=== PATIENT | female | born 1945 | race African-American/Black ===

== ENCOUNTER → 2017-08-10 | Outpatient (CLI) | payer MEDICARE, OTHER ==
[~2017-08-10] MED LIST: AMLO10TA2 PO; ANAS1 PO; CATA0.2D TD; CLON0.1D T-DERMAL; COZA100T PO; DALB1SOL IV; DIFL100T PO; FERR1TAB16 PO; LEVO.125 PO; LISI-363 PO; LOVA1TAB47 PO; METO1TAB42 PO; METO50CR OR; NITR.4 SL; OMEP20CA5 PO; OMEP20TA93 PO; OXYC1CAP PO; RENATAB6 PO; SIMV20TA PO; ZOFR4TAB3 SL
[2017-08-10 13:39] LABS: HEMATOCRIT 36.2 % (35.0-46.0); HEMOGLOBIN 11.9 GM/DL (11.6-15.3); MEAN CELL VOLUME 97.9 FL (80.0-100.0); MEAN CORPUSCULAR HEMOGLOBIN 32.3 PG (27.0-34.0); MEAN CORPUSCULAR HGB CONC 32.9 % (32.0-36.0); MEAN PLATELET VOLUME 7.6 FL (7.0-11.0); PLATELET COUNT 221 TH/MM3 (150-450); RED CELL DISTRIBUTION WIDTH 15.2 % (11.6-17.2); WHITE BLOOD COUNT 7.6 TH/MM3 (4.0-11.0)
[2017-08-10 13:47] LABS: INTERNATIONAL NORMALIZED RATIO 1.1 RATIO; PROTHROMBIN TIME - PATIENT 10.7 SEC (9.8-11.6)
[2017-08-10 14:10] LABS: CALCIUM 7.8 MG/DL (8.5-10.1)
[2017-08-10 14:21] LABS: CREATININE 10.15 MG/DL (0.50-1.00)
--- NOTE | 2017-08-11 23:13 | EKG ---
Date Performed: 08/10/2017 Time Performed: 12:37:40 PTAGE: 72 years EKG: Sinus rhythm WITH MARKED SINUS ARRHYTHMIA BORDERLINE ECG NO PREVIOUS TRACING DOCTOR: Mehnaz Manzano Interpretating Date/Time 08/11/2017 23:12:21
== END ==
LOC: CPRE 11:58
PROVIDERS: ATTEND Surgery
DX: Z01.812 Encounter for preprocedural laboratory examination (principal); Z01.818 Encounter for other preprocedural examination; N18.6 End stage renal disease; I77.0 Arteriovenous fistula, acquired; R94.31 Abnormal electrocardiogram [ECG] [EKG]; Z99.2 Dependence on renal dialysis
CPT/HCPCS: 36415; 80048; 85027; 85610; 86850; 86900; 86901; 93005

== ENCOUNTER 2017-08-12 11:36 | Observation (INO) | payer MEDICARE, OTHER ==
[~2017-08-12] VITALS: Ht 170.2 cm; Wt 97.5 kg
[~2017-08-12 11:36] MED LIST changes: -ANAS1 PO; -CATA0.2D TD; -COZA100T PO; -LISI-363 PO; -LOVA1TAB47 PO; -METO50CR OR; -NITR.4 SL; -OMEP20CA5 PO; -OXYC1CAP PO; -ZOFR4TAB3 SL
[2017-08-12] MEDS ORDERED: LIDOCAINE HCL 1% PF 5 ML SYRINGE OTHER ONE (12:00)
[2017-08-12] MEDS ORDERED: DEXAMETHASONE SOD PHOS 4 MG/ML VIAL IV ONE (12:00)
[2017-08-12] MEDS ORDERED: SUCCINYLCHOLINE CHLORIDE 100 MG/5 ML SYRINGE IV PUSH ONE (12:00)
[2017-08-12] MEDS ORDERED: STERILE WATER FOR INJECTION 20 ML VIAL IV ONE (12:00)
[2017-08-12] MEDS ORDERED: PROPOFOL 200 MG/20 ML AMP IV ONE (12:00)
[2017-08-12] MEDS ORDERED: ONDANSETRON HCL 4 MG/2 ML VIAL IV ONE (12:00)
[2017-08-12] MEDS ORDERED: LABETALOL HCL 100 MG/20 ML VIAL IV ONE (12:00)
[2017-08-12] MEDS ORDERED: SODIUM CHLOR 0.9% 250 ML INJ 250 ML IV ONE (12:00)
[2017-08-12] MEDS ORDERED: LACTATED RINGER'S 1000 ML IV PRN (12:30)
[2017-08-12] MEDS ORDERED: CHLORHEXIDINE GLUCONATE 2 % 1 PACK (2 CLOTHS) TOPICAL PRN (12:30)
[2017-08-12] MEDS ORDERED: METOPROLOL TARTRATE 25 MG TAB PO PRN (12:30)
[2017-08-12] MEDS ORDERED: SODIUM CHLORID 0.9% 500 ML IV PRN (12:30)
[2017-08-12] MEDS ORDERED: POVIDONE IODINE 5% (ANTISEPSIS KIT) 4 APPLICATIONS EACH NARE PRN (12:30)
--- NOTE | 2017-08-12 14:28 | PD.VS.PN ---
Pre-operative Note Pre-operative diagnosis: 1. R UE thrombosed access 2. ESRD need for HD access Planned procedure: 1. Excision of R forearm access 2. R UE access creation Interval History: Pt has been feeling well except for pain in the right arm. Ready for surgery. Labs: Hct 36 K ok Blood: T&S Imaging: duplex reviewed Orders: NPO Vanc 1g IV OCTOR Post-operative destination: PACU Operative site marked: Yes Consent: Informed consent has been obtained from Kiara Solitario. I have explained the procedure in detail and discussed the risks, benefits, and potential complications. All questions have been answered. Patient contact information: James [phone] Jace Taylor MD Aug 12, 2017 14:28
[2017-08-12] MEDS ORDERED: VANCOMYCIN HCL 1000 MG VIAL ONE (14:54)
[2017-08-12] MEDS ORDERED: HEPARIN SODIUM - IV 10,000 UNITS/10 ML VIAL ONE (14:54)
[2017-08-12] MEDS ORDERED: HEPARIN-NS/PF INJ 500 ML ONE (14:54)
[2017-08-12] MEDS ORDERED: THROMBIN (TOPICAL) 20,000 UNIT SPRAY KIT ONE (14:54)
[2017-08-12] MEDS ORDERED: PROTAMINE SULFATE 50 MG/5 ML VIAL ONE (14:54)
[2017-08-12] MEDS ORDERED: BUPIVACAINE HCL PF 0.5% 30 ML VIAL ONE (14:54)
--- NOTE | 2017-08-12 16:54 | HHI.PR ---
cc: Jace Taylor MD Immediate Post Op Note Procedure Date: Aug 12, 2017 Pre Op Diagnosis: Thrombosed R UE AVF, ESRD need for HD access Post Op Diagnosis: Thrombosed R UE AVF, ESRD need for HD access Surgeon: Jace Taylor Cold Press Operator(s): Rizwan Marley Procedure: 1. R UE Access excision 2. R UE brachiobasilic AVF creation (1st stage) Findings: thrombosed aneurysms in forearm and antecubitum good thrill after AVF Complications: none Estimated blood loss: 150mL Anesthesia: General Drains: None Fluids: 400mL IVF Patient to: PACU Patient Condition: Good Implant/Devices: SEE IMPLANT LOG (if applicable) Date/Time of Procedure: SEE SURGICAL CARE RECORD Jace Taylor MD Aug 12, 2017 16:53
[2017-08-12] MEDS ORDERED: LACTULOSE SYRUP 20 GM/30 ML CUP PO PRN (17:00)
[2017-08-12] MEDS ORDERED: [UNRECOGNIZED DRUG - OTHER] IV SCH (17:00)
[2017-08-12] MEDS ORDERED: BISACODYL 10 MG SUPP RECTAL PRN (17:00)
[2017-08-12] MEDS ORDERED: SENNOSIDES 8.6 MG TAB PO PRN (17:00)
[2017-08-12] MEDS ORDERED: FERRIC CITRATE PO SCH (17:00)
[2017-08-12] MEDS ORDERED: *morphine SULFATE 8 MG/ML PERIprocedure ONLY ONE ×2 (17:19→19:35)
[2017-08-12] MEDS ORDERED: DO NOT ADM ANY ANTICOAGULANT DRUGS PRN (17:30)
[2017-08-12] MEDS ORDERED: REMOVE OLD PATCH T-DERMAL SCH (18:00)
[2017-08-12] MEDS ORDERED: cloNIDine HCL 0.1 MG/24 HR PATCH T-DERMAL SCH (18:00)
[2017-08-12 20:00] VITALS: BP 123/58; PULSE 74; RESP 20; TEMP 97.5; O2SAT 99
[2017-08-12 20:22] VITALS: O2SAT 99
[2017-08-12 21:00] VITALS: PULSE 74
[2017-08-12] MEDS ORDERED: METOPROLOL SUCCINATE 25 MG EXTENDED RELEASE TAB PO SCH (21:00)
[2017-08-12] MEDS ORDERED: PRAVASTATIN SOD 40 MG TAB PO SCH (21:00)
[2017-08-12] MEDS: DOCUSATE SODIUM 50 MG/SENNA 8.6 MG TAB PO SCH (21:12)
[2017-08-12] MEDS: FAMOTIDINE 20 MG TAB PO SCH (21:16)
[2017-08-12 22:00] VITALS: PULSE 76
[2017-08-12 23:00] VITALS: PULSE 74
[2017-08-13] VITALS (15 sets, daily range): BP systolic 114–118; BP diastolic 59–62; PULSE 56–77; RESP 18–19; TEMP 98.2–98.7; O2SAT 97
[2017-08-13] MEDS: HYDROmorphone HCL 2 MG TAB PO PRN ×2 (03:15→09:29)
[2017-08-13 04:42] LABS: HEMATOCRIT 31.4 % (35.0-46.0); HEMOGLOBIN 10.3 GM/DL (11.6-15.3); MEAN CELL VOLUME 97.9 FL (80.0-100.0); MEAN CORPUSCULAR HGB CONC 32.7 % (32.0-36.0); MEAN PLATELET VOLUME 7.7 FL (7.0-11.0); PLATELET COUNT 229 TH/MM3 (150-450); RED BLOOD COUNT 3.21 MIL/MM3 (4.00-5.30); WHITE BLOOD COUNT 8.5 TH/MM3 (4.0-11.0)
[2017-08-13 05:11] LABS: BICARBONATE 27.7 MEQ/L (21.0-32.0); CALCIUM 7.8 MG/DL (8.5-10.1)
[2017-08-13 05:20] LABS: CREATININE 10.5 MG/DL (0.50-1.00)
[2017-08-13] MEDS ORDERED: LEVOTHYROXINE SODIUM 125 MCG TAB PO SCH (06:00)
[2017-08-13] MEDS: FAMOTIDINE 20 MG TAB PO SCH (08:52)
[2017-08-13] MEDS: DOCUSATE SODIUM 50 MG/SENNA 8.6 MG TAB PO SCH (08:52)
[2017-08-13] MEDS ORDERED: VITAMIN B CMPLX/VITC/FOLIC AC CAP PO SCH (09:00)
[2017-08-13] MEDS ORDERED: PANTOPRAZOLE SOD 20 MG DELAYED RELEASE TAB PO SCH (09:00)
[2017-08-13] MEDS ORDERED: ASPIRIN 81 MG CHEW TAB PO SCH (09:00)
[2017-08-13] MEDS ORDERED: ZOFR4TAB3 SL (09:02)
[2017-08-13] MEDS ORDERED: OXYC1CAP PO (09:03)
[2017-08-13] MEDS ORDERED: ONDANSETRON HCL 4 MG/2 ML VIAL IV PUSH PRN (09:15)
[2017-08-13] MEDS ORDERED: FERRIC CITRATE (AURYXIA) 210MG TABLET PO SCH (09:30)
--- NOTE | 2017-08-13 09:31 | PD.VS.PN ---
Subjective POD #: 1 Procedure(s): R UE Access excision R UE brachiobasilic AVF creation (1st stage) Subjective/Hospital Course 72/F S/P R UE Access excision/R UE brachiobasilic AVF creation (1st stage) Pt doing well this am Pt c/o Nausea this am w/o vomiting Pain controlled Pt w/o hand pain this am Pt c/o hand discomfort last night (incisional pain) UE warm w/ motor intact Objective Vitals/I&O Date Time Temp Pulse Resp B/P (MAP) Pulse Ox O2 Delivery O2 Flow Rate FiO2 08/13/17 06:00 74 08/13/17 05:00 74 08/13/17 04:13 75 08/13/17 03:30 98.2 70 19 118/62 (80) 97 08/13/17 03:00 71 08/13/17 02:06 74 08/13/17 01:00 72 08/13/17 00:28 74 08/13/17 00:00 98.7 71 18 114/59 (77) 97 08/12/17 23:00 74 08/12/17 22:00 76 08/12/17 21:00 74 08/12/17 21:00 74 08/12/17 20:22 99 Nasal Cannula 2.00 08/12/17 20:00 97.5 74 20 123/58 (79) 99 08/12/17 20:00 74 08/12/17 19:30 75 12 120/67 (84) 99 Nasal Cannula 2 08/12/17 19:00 97.4 77 15 113/86 (95) 94 Nasal Cannula 2 08/12/17 18:30 68 14 128/60 (82) 100 Nasal Cannula 2 08/12/17 18:00 64 12 122/65 (84) 100 Nasal Cannula 2 08/12/17 17:45 65 13 125/60 (81) 100 Nasal Cannula 2 08/12/17 17:30 65 13 128/61 (83) 100 Nasal Cannula 2 08/12/17 17:15 68 13 127/61 (83) 100 Nasal Cannula 2 08/12/17 16:59 97.8 67 23 128/67 (87) 100 Nasal Cannula 2 08/12/17 12:50 97.9 55 18 133/77 (95) 98 08/13/17 08/13/17 08/13/17 07:00 15:00 23:00 Intake Total 240 ml Output Total 200 ml Balance 40 ml Exam: GENERAL: A&OX3,NAD, GCS 15 SKIN: UE Warm and dry w/ motor intact R UE incision intact w/o R/D/S + thrill near AVF Laboratory Laboratory Tests Test 08/13/17 04:15 White Blood Count 8.5 Red Blood Count 3.21 Hemoglobin 10.3 Hematocrit 31.4 Mean Corpuscular Volume 97.9 Mean Corpuscular Hemoglobin 32.0 Mean Corpuscular Hemoglobin Concent 32.7 Red Cell Distribution Width 15.0 Platelet Count 229 Mean Platelet Volume 7.7 Blood Urea Nitrogen 35 Creatinine 10.50 Random Glucose 124 Calcium Level 7.8 Sodium Level 140 Potassium Level 5.3 Chloride Level 101 Carbon Dioxide Level 27.7 Anion Gap 11 Estimat Glomerular Filtration Rate 4 25-Hydroxy Vitamin D Total 7.2 Parathyroid Hormone (Intact) 501.8 Assessment and Plan Assessment: (1) AVF (arteriovenous fistula) (2) ESRD (end stage renal disease) on dialysis Plan 72/F s/p R UE AVF excision/ R UE AVF creation (first stage) Pt doing well Pain controlled Pt c/o nausea UE warm w/ motor intact + thrill Near AVF Plan Antiemetic ordered PRN for nausea Discussed and reviewed AVF first stage/Excision post operative care and management w/ pt Pt clear for D/c post HD today Arranged out pt f/u Annalee Arredondo NP [id number] Annalee Arredondo [facility] Aug 13, 2017 09:31
--- NOTE | 2017-08-13 09:47 | PD.VS.DC ---
Discharge Summary Admission Date: Aug 12, 2017 at 17:06 Discharge Date: Aug 13, 2017 Admission Diagnosis: (1) AVF (arteriovenous fistula) (2) ESRD (end stage renal disease) on dialysis Discharge Diagnosis: (1) AVF (arteriovenous fistula) ICD Codes: I77.0 - Arteriovenous fistula, acquired (2) ESRD (end stage renal disease) on dialysis ICD Codes: N18.6 - End stage renal disease; Z99.2 - Dependence on renal dialysis Brief History from admission 72/F w/ a PMH R UE thrombosed access and ESRD need for HD access Procedure(s): R UE Access excision R UE brachiobasilic AVF creation (1st stage) Significant Findings GENERAL: A&OX3,NAD, GCS 15 SKIN: UE Warm and dry w/ motor intact R UE incision intact w/o R/D/S + thrill near AVF Laboratory Tests Test 08/13/17 04:15 Red Blood Count 3.21 MIL/MM3 (4.00-5.30) Hemoglobin 10.3 GM/DL (11.6-15.3) Hematocrit 31.4 % (35.0-46.0) Blood Urea Nitrogen 35 MG/DL (7-18) Creatinine 10.50 MG/DL (0.50-1.00) Random Glucose 124 MG/DL (74-106) Calcium Level 7.8 MG/DL (8.5-10.1) Potassium Level 5.3 MEQ/L (3.5-5.1) Estimat Glomerular Filtration Rate 4 ML/MIN (>89) 25-Hydroxy Vitamin D Total 7.2 ng/ML (30-100) Parathyroid Hormone (Intact) 501.8 PG/ML (12.4-76.8) Hospital Course: 72/F w/ a PMH R UE thrombosed access and ESRD need for HD access Pt s/p R UE Access excision/R UE brachiobasilic AVF creation (1st stage) POD 1 Pt doing well this am Pt c/o Nausea this am w/o vomiting Pain controlled Pt w/o hand pain this am Pt c/o hand discomfort last night (incisional pain) UE warm w/ motor intact Pt clear for d/c post HD Arranged post op f/u Allergies Coded Allergies Type Severity Reaction Last Updated Verified Iodinated Contrast- Oral and IV Dye Allergy Severe Rash 08/10/17 Yes bee venom protein (honey bee) Allergy Severe Anaphylaxis 08/10/17 Yes 08/11/17 08/11/17 08/12/17 08/12/17 08/13/17 08/13/17 06:00 18:00 06:00 18:00 06:00 18:00 Intake Total 400 ml 240 ml Output Total 150 ml 200 ml Balance 250 ml 40 ml Intake Oral 240 ml Other 400 ml Output Urine Total 0 ml Emesis 200 ml Estimated Blood Loss 150 ml Laboratory Tests Test 08/13/17 04:15 White Blood Count 8.5 TH/MM3 Red Blood Count 3.21 MIL/MM3 Hemoglobin 10.3 GM/DL Hematocrit 31.4 % Mean Corpuscular Volume 97.9 FL Mean Corpuscular Hemoglobin 32.0 PG Mean Corpuscular Hemoglobin Concent 32.7 % Red Cell Distribution Width 15.0 % Platelet Count 229 TH/MM3 Mean Platelet Volume 7.7 FL Blood Urea Nitrogen 35 MG/DL Creatinine 10.50 MG/DL Random Glucose 124 MG/DL Calcium Level 7.8 MG/DL Sodium Level 140 MEQ/L Potassium Level 5.3 MEQ/L Chloride Level 101 MEQ/L Carbon Dioxide Level 27.7 MEQ/L Anion Gap 11 MEQ/L Estimat Glomerular Filtration Rate 4 ML/MIN 25-Hydroxy Vitamin D Total 7.2 ng/ML Parathyroid Hormone (Intact) 501.8 PG/ML Orders Procedure Category Date Status Time Fentanyl Inj MED 08/12/17 Complete (Fentanyl Inj) 11:03 Lactated Ringer's MED 08/12/17 In Process 1000 Ml Inj (Lr 1000 M 12:30 Sodium Chlorid 0.9% MED 08/12/17 In Process 500 Ml Inj (Ns 500 M 12:30 Metoprolol Tartrate MED 08/12/17 In Process (Lopressor) 12:30 Povidone Iod 5% MED 08/12/17 In Process Antisepsis Kit 12:30 Chlorhexidine 2% MED 08/12/17 In Process Cloth (Chlorhexidine 12:30 Protamine Sulfate Inj MED 08/12/17 Complete (Protamine Sulfate 14:54 Heparin Inj (Heparin MED 08/12/17 Complete Inj) 14:54 Bupivacaine Pf 0.5% MED 08/12/17 Complete Inj (Marcaine Pf 0.5 14:54 Vancomycin Inj MED 08/12/17 Complete (Vancomycin Inj) 14:54 Thrombin Top [place] MED 08/12/17 Complete (Thrombin Top [place]) 14:54 Heparin-Ns/Pf Inj MED 08/12/17 Complete (Heparin-Ns/Pf Inj) 14:54 Place In Observation ADMITTING 08/12/17 Transmitted Code Status CODE 08/12/17 Transmitted 16:54 Vital Signs (Adult) ANGELES 08/12/17 In Process 16:54 Fruit Washer / ANGELES 08/12/17 Complete Telemetry 16:54 Activity Oob Ad Padma ANGELES 08/12/17 In Process 16:54 Precautions ANGELES 08/12/17 In Process 16:54 Diet Heart Healthy DIET 08/12/17 Transmitted Dinner Basic Metabolic Panel LAB 08/13/17 Complete (Bmp) 06:00 Cbc No Diff, Includes LAB 08/13/17 Complete Plts 06:00 Consult Nephrology CONS 08/12/17 Transmitted Aspirin Chew (Aspirin MED 08/13/17 In Process Chew) 09:00 Famotidine (Pepcid) MED 08/12/17 In Process 21:00 Oxycodone (Roxicodone) MED 08/12/17 In Process 17:00 Hydromorphone MED 08/12/17 In Process (Dilaudid) 17:00 Scd Bilateral/Knee ANGELES 08/12/17 Complete High 16:54 Docusate Sodium-Senna MED 08/12/17 In Process (Bri-Colace) 21:00 Sennosides (Senokot) MED 08/12/17 In Process 17:00 Bisacodyl Supp MED 08/12/17 In Process (Dulcolax Supp) 17:00 Lactulose Liq MED 08/12/17 In Process (Lactulose Liq) 17:00 Amlodipine (Norvasc) MED 08/12/17 In Process 21:00 Clonidine 0.1 Mg MED 08/12/17 In Process Patch.7d (Catapres-Tts 18:00 Levothyroxine MED 08/13/17 In Process (Synthroid) 06:00 Metoprolol Succinate MED 08/12/17 In Process Er (Toprol Xl) 21:00 (Nf) Ferric Citrate MED 08/12/17 Complete (Auryxia) 17:00 Pantoprazole MED 08/13/17 In Process (Protonix) 09:00 Pravastatin MED 08/12/17 In Process (Pravachol) 21:00 (Hub Use Only)Inp Phy CONS 08/12/17 Transmitted Cons/Ref *Morphine Inj MED 08/12/17 Complete (*Morphine Inj 17:19 Misc Nursing MED 08/12/17 In Process Information 17:30 Heparin Inj (Heparin MED 08/13/17 In Process Inj) 17:00 Sds Pre Op Care SDSC 08/12/17 Complete Remove Old Patch MED 08/12/17 In Process 18:00 Parathyroid Hormone LAB 08/13/17 Complete Intact 06:00 Vitamin D, 25-Hydroxy LAB 08/13/17 Complete 06:00 Vitamin D 1, 25 LAB 08/13/17 In Process Dihydroxy 06:00 ^ Other Nursing Orders ANGELES 08/12/17 In Process 17:57 *Morphine Inj MED 08/12/17 Complete (*Morphine Inj 19:35 Class Iv Pacu Ea 30 [facility] 08/12/17 Complete MIN General/Pacu [facility] 08/12/17 Complete Post Anesthesia Oxygen [facility] 08/12/17 Complete Pacu [facility]pc[facility] Holding [facility] 08/12/17 Complete Hourly Patient Own Medication MED 08/13/17 In Process 09:30 Vitamin B Cmplx-Vit MED 08/13/17 In Process C-Folic Ac (Nephroca 09:00 Ondansetron Inj MED 08/13/17 In Process (Zofran Inj) 09:15 Attending Discharge DISCHARGE 08/13/17 Transmitted Order Vital Signs Date Time Temp Pulse Resp B/P (MAP) Pulse Ox O2 Delivery O2 Flow Rate FiO2 08/13/17 06:00 74 08/13/17 05:00 74 08/13/17 04:13 75 08/13/17 03:30 98.2 70 19 118/62 (80) 97 08/13/17 03:00 71 08/13/17 02:06 74 08/13/17 01:00 72 08/13/17 00:28 74 08/13/17 00:00 98.7 71 18 114/59 (77) 97 08/12/17 23:00 74 4/19/18 22:00 76 08/12/17 21:00 74 08/12/17 21:00 74 08/12/17 20:22 99 Nasal Cannula 2.00 08/12/17 20:00 97.5 74 20 123/58 (79) 99 08/12/17 20:00 74 08/12/17 19:30 75 12 120/67 (84) 99 Nasal Cannula 2 08/12/17 19:00 97.4 77 15 113/86 (95) 94 Nasal Cannula 2 08/12/17 18:30 68 14 128/60 (82) 100 Nasal Cannula 2 08/12/17 18:00 64 12 122/65 (84) 100 Nasal Cannula 2 08/12/17 17:45 65 13 125/60 (81) 100 Nasal Cannula 2 08/12/17 17:30 65 13 128/61 (83) 100 Nasal Cannula 2 08/12/17 17:15 68 13 127/61 (83) 100 Nasal Cannula 2 08/12/17 16:59 97.8 67 23 128/67 (87) 100 Nasal Cannula 2 08/12/17 12:50 97.9 55 18 133/77 (95) 98 Discharge Condition: Good Discharge Disposition: Discharge Home Discharge Instructions: DIET You may resume your dialysis diet ACTIVITY Activity as tolerated NO heavy lifting over a gallon of milk for 1W No B/P readings or lab draws to your R UE You may shower then pat dry your incision site NO tub baths or swimming until your incision is fully healed MEDICATION You may resume your home medications You were prescribed an antiemetic medication- Take as needed for nausea You were prescribed a narcotic pain medication- This may cause constipation- Take with an over the counter stool softener You were prescribed a narcotic pain medication- This may cause drowsiness- Do not drive while taking this medication WOUND CARE Leave your incision open to air Do not apply any creams or ointments to your incision as it may loosen the surgical glue Call to report any new onset pain, swelling, redness or drainage Any questions or concerns: Call [facility] at [facility] [phone] Annalee Arredondo Aug 13, 2017 09:47
--- NOTE | 2017-08-13 09:58 | MP ---
cc: Jace Taylor MD DATE OF OPERATION: 08/12/2017 PREOPERATIVE DIAGNOSES: 1. Pseudoaneurysm of the forearm arteriovenous fistula. 2. Endstage renal disease, need for dialysis access. POSTOPERATIVE DIAGNOSES: 1. Pseudoaneurysm of the forearm arteriovenous fistula. 2. Endstage renal disease, need for dialysis access. PROCEDURES PERFORMED: 1. Excision of forearm arteriovenous fistula, including pseudoaneurysms. 2. Right brachiobasilic arteriovenous fistula (first stage). ATTENDING SURGEON: Jace Taylor MD ANESTHESIOLOGIST PHYSICIAN SURGEON: Rizwan Marley ANESTHESIA: General. INDICATIONS FOR PROCEDURE: Ms. Solitario is a 72-year-old lady with end-stage renal disease and a previous forearm arteriovenous fistula, with pseudoaneurysms that are eroding into her skin and very painful for the patient and she needs further dialysis access. She was taken to the operating room for right arm access excision and new access creation. Preoperative imaging suggested a basilic vein was the best remaining choice. DESCRIPTION OF PROCEDURE: Informed consent was obtained from the patient. She was taken to the operating room and placed supine on the operating table. An appropriate timeout was taken to ensure the patient identity, operative site and planned procedure. The administration of 1 gram of Ancef, vancomycin was initiated prior to skin incision and will be discontinued after single preoperative dose. They everyone in the room agreed upon we proceeded. Of note, Vancomycin was chosen because of the patient's end-stage renal disease. The patient's right arm was prepped and draped and an incision made over the course of the forearm, carried down through subcutaneous tissue with electrocautery. The proximal aspect of the thrombosed pseudoaneurysmal fistula was then identified, dissected free, clamped with a right angle. There was still Doppler signals in the radial, palmar and ulnar arteries and the fistula was transected. Indeed, it was noted to be thrombosed. The proximal aspect was oversewn with 5-0 Prolene and 2 large Hemoclips. We then dissected the entire pseudoaneurysmal fistula, including the skin up to the antecubitum. The right angle was placed on the venous outflow. The vein was transected and the vein was oversewn with 4-0 Prolene. The wound was irrigated and infiltrated with Marcaine and closed with 2-0 Polysorb, 3-0 Polysorb and 4-0 Monocryl. A separate incision made on the distal aspect of the upper arm, carried down through the subcutaneous tissue with electrocautery and another pseudoaneurysmal area of the cephalic vein was identified and resected, after being dissected free, it was clamped proximally and distally and ligated with 4-0 Prolene. On the medial aspect of the incision. The brachial artery was identified and dissected free for several centimeters and the basilic vein was identified and the central portion of this incision dissected free for several centimeters. The patient was similarly heparinized with 3000 units of IV heparin. Proximal and distal control of the brachial artery obtained with profunda clamps and the vein was mobilized, transected distally, spatulated and an arteriotomy was made with an 11 blade, extended with Phoenix scissors. The vein was sewn to the artery in an end-to-side fashion with running 5-0 Prolene suture. At completion, it was flushed and noted to be hemostatic. There was an excellent thrill and good Doppler signals in the wrist and palmar arch. The wound was infiltrated with Marcaine, irrigated and closed with 2-0 Polysorb, 3-0 Polysorb and 4-0 Monocryl. The sponge, and instrument counts were correct at the end of the case. I was present, scrubbed and performed the entire procedure. MD DELIA Gibbs/DAYLIN , 08:53 PM , 09:29 PM
[2017-08-13] MEDS ORDERED: HEPARIN SODIUM - SQ 10,000 UNITS/ML VIAL SQ SCH (17:00)
== END 2017-08-13 11:27 | disposition home or self-care (01) ==
LOC: HCVO 11:36 → HSDI 17:06 → HCPC 20:05
PROVIDERS: ADMIT Surgery; ATTEND Surgery
DX: I77.0 Arteriovenous fistula, acquired (principal); I12.0 Hypertensive chronic kidney disease with stage 5 chronic kidney disease or end stage renal disease; N18.6 End stage renal disease; Z99.2 Dependence on renal dialysis; E78.5 Hyperlipidemia, unspecified; K21.9 Gastro-esophageal reflux disease without esophagitis; E66.9 Obesity, unspecified
CPT/HCPCS: 01844; 36821; 36833; 80048; 82306; 83970; 85027; 96374; G0378; J0330; J1100; J1644; J2270; J2405; J2720; J3010; J3370; J7050; 82652